=== PATIENT | female | born 1980 | race Caucasian/White ===

== ENCOUNTER 2020-07-22 19:07 | Emergency (ER) | payer BC, OTHER ==
[2020-07-22] MEDS ORDERED: AUGMENTIN 875-1 EACH PO (22:52)
[2020-07-22] MEDS ORDERED: MEDROL DOSEPAK 24 MG PO (22:52)
[2020-07-22] MEDS ORDERED: DIFLUCAN150 MG PO (23:05)
== END 2020-07-22 23:05 | disposition home or self-care (01) ==
LOC: ER1 19:07
DX: R20.2 Paresthesia of skin (principal); R59.1 Generalized enlarged lymph nodes; F17.210 Nicotine dependence, cigarettes, uncomplicated
CPT/HCPCS: 70490; 99284

== ENCOUNTER → 2020-09-16 | Outpatient (CLI) | payer BC ==
[~2020-09-16] MED LIST: AUGMENTIN 875-1 EACH PO; DIFLUCAN150 MG PO; MEDROL DOSEPAK 24 MG PO
== END ==
LOC: CT 09-09 13:30 → US 09-09 13:30 → CT 15:00
DX: R22.2 Localized swelling, mass and lump, trunk (principal); M79.602 Pain in left arm
CPT/HCPCS: 71260; 93971; Q9967